=== PATIENT | female | born 1980 | race Caucasian/White ===

== ENCOUNTER 2022-04-06 20:56 | Emergency (ER) | payer OTHER ==
[2022-04-06 22:31] LABS: BILIRUBIN NEGATIVE (NEGATIVE); BLOOD 3+ Ery/uL (NEGATIVE); CLARITY CLEAR (CLEAR); COLOR YELLOW (YELLOW); GLUCOSE (U) NORMAL (NORMAL); LEUKOCYTES NEGATIVE Leu/uL (NEGATIVE); NITRITE NEGATIVE (NEGATIVE); PROTEIN NEGATIVE (NEGATIVE); UROBILINOGEN 0.2 mg/dL (0.2-1.0)
[2022-04-06 22:32] LABS: BASOPHIL 0.1 % (0-2); EOSINOPHIL 0.8 % (0-5); HCT 40.8 % (37.0-47.0); HGB 13.9 g/dl (12.5-16.0); LYMPHOCYTE 21.9 % (15-48); MCH 32.5 pg (25.0-31.0); MCHC 34.1 g/dL (32.0-36.0); MCV 95.3 fL (78.0-100.0); MONOCYTE 4.9 % (0-12); NEUTROPHIL 72.1 % (41-80); NRBC 0; PLT 230 K/uL (150-400); RBC 4.28 M/uL (4.20-5.40); RDW 11.9 % (11.5-14.0)
[2022-04-06 22:38] LABS: BACTERIA 1+; URINARY RBC TNTC; URINARY WBC RARE
[2022-04-06 22:54] LABS: BUN/CREAT RATIO (CALC) 13.6 RATIO; CREATININE 0.81 mg/dL (0.51-0.95); POTASSIUM 3.7 mmol/L (3.5-5.1)
== END 2022-04-06 23:58 | disposition home or self-care (01) ==
LOC: FER 20:56
PROVIDERS: Nurse Practitioner Family
DX: O20.0 Threatened abortion (principal); O99.511 Diseases of the respiratory system complicating pregnancy, first trimester; J45.909 Unspecified asthma, uncomplicated; Z3A.01 Less than 8 weeks gestation of pregnancy; Z88.1 Allergy status to other antibiotic agents; Z88.6 Allergy status to analgesic agent
CPT/HCPCS: 36415; 76817; 80048; 81001; 84702; 85025; 86900; 86901